=== PATIENT | male | born 1945 | race Caucasian/White ===

== ENCOUNTER 2019-02-24 18:02 | Emergency (ER) | payer MEDICARE ==
[~2019-02-24] VITALS: Ht 162.6 cm; Wt 63.0 kg
[~2019-02-24 18:02] MED LIST: ALPRAZOLAM0.25 MG PO; ALPRAZOLAM0.5 M2 PO; AMLODIPINE BESYL5 MG PO; AMLODIPINE2.5 MG OR; ASPIRIN LOW DOS81 M1 PO; ATORVASTATIN CA10 MG PO; CLONAZEP ODT0.5 MG PO; CLOTRIM/BET2 EX; COMPAZINE10 MG OR; DEPO-MEDROL40 MG/ML IJ; DICLOXACILL500 MG PO; DOXAZOSIN1 MG PO; EFFEXOR37.5 MG PO; FLOMAX0.4 M1 OR; FLUARIX QUADRIV1 INJ IM; FUROSEMIDE40 MG PO; GLUCOPHAGE500 MG PO; KLOR-CON M2020 MEQ PO; LEVAQUIN750 MG PO; LEVOTHYROXIN50 MC1 PO; LEVOTHYROXIN50 MCG PO; LEXAPRO10 MG OR; LIPITOR20 MG PO; LISINOPRIL20 M1 PO; LISINOPRIL20 MG OR; LISINOPRIL20 MG PO; LOPRESSOR 550 MG/TAB PO; LOPRESSOR50 M1 PO; LORCET10/650 OR; LORTAB 7.5 PO; LOTRISONE EX; MEDDOSEPAK PO; METFORMIN HCL500 MG PO; METFORMIN500 MG PO; NAPROSYN500 MG OR; NEXIUM40 M1 OR; NEXIUM40 M1 PO; NITRO-DUR0.4 MG/HR TD; OXYBUTYNIN5 M1 PO; OXYCODONE40 MG OR; PLAVIX75 MG PO; PRAVACHOL20 MG PO; PRAVASTATIN20 MG OR; PRAVASTATIN20 MG PO; PREDNISONE10 MG PO; PREDNISONE20 MG PO; RESTORIL15 MG PO; TRAMADOL HCL E100 M1 PO; TRAMADOL HCL50 MG OR; TRAMADOL HCL50 MG PO; VENLAFAXINE HC150 MG PO; VENLAFAXINE150 M1 PO; VENLAFAXINE37.5 M1 PO; VENLAFAXINE37.5 M2 PO; VENLAFAXINE75 M1 PO; VENLAFAXINE75 M2 PO; XANAX0.5 MG OR; ZYRTEC10 MG PO
[2019-02-24 19:03] LABS: HEMATOCRIT 38.4 % (39.0-50.0); HEMOGLOBIN 12.8 g/dl (14.0-18.0); IMMATURE GRANULOCYTES 0.5 % (0.0-5.0); MEAN CELL VOLUME 95.5 fL CALC (80.0-100.0); MEAN CORPUSCULAR HGB 31.8 pG CALC (26.0-32.0); MEAN CORPUSCULAR HGB CONC 33.3 g/L CALC (32.0-36.0); NEUT# 4.91 thou/uL (1.82-7.42); RED BLOOD COUNT 4.02 mill/uL (4.70-6.10); RED CELL DISTRI WIDTH 12.4 % (11.5-15.5)
[2019-02-24 19:18] LABS: ALBUMIN 4.2 g/dL (3.2-5.0); ALKALINE PHOSPHATASE 63 u/l (38-126); ANION GAP 14 (6-22 (CALC)); BILIRUBIN, TOTAL 0.5 mg/dL (0.0-1.4); BUN 16 mg/dL (8-23); BUN/CREATININE RATIO 20 (12-20 (CALC)); CARBON DIOXIDE 25 mmol/l (22-30); CHLORIDE 103 mmol/l (95-108); CREATININE 0.8 mg/dL (0.7-1.3); GFR > 60 ML/MIN (>=60 (CALC)); GFR FOR AFR.AMER. > 60 ML/MIN (>=60 (CALC)); POTASSIUM 4.4 mmol/l (3.5-5.1); SGOT/AST 17 u/l (19-48); SODIUM 138 mmol/l (137-146); TOTAL PROTEIN 6.8 g/dL (6.3-8.2)
[2019-02-24 19:19] LABS: ETHYL ALCOHOL 0 mg/dl (0-30)
[2019-02-24 20:37] LABS: URINE BILIRUBIN - DIPSTICK NEGATIVE (NEGATIVE); URINE BLOOD DIPSTICK NEGATIVE (NEGATIVE); URINE COLOR YELLOW; URINE GLUCOSE - DIPSTICK NEGATIVE (NEGATIVE); URINE KETONE NEGATIVE (NEGATIVE); URINE LEUK ESTERASE NEGATIVE (NEGATIVE); URINE NITRITE - DIPSTICK NEGATIVE (Negative); URINE PH 5.5 (4.5-8.0); URINE PROTEIN - DIPSTICK NEGATIVE (NEG-TRACE); URINE SPECIFIC GRAVITY 1.025; URINE UROBILINOGEN - DIPSTICK 0.2 E.U./dL (0.2)
[2019-02-24 20:48] LABS: BARBITURATES NEGATIVE (NEGATIVE); COCAINE NEGATIVE (NEGATIVE); METHADONE NEGATIVE (NEGATIVE); OXCYCODONE NEGATIVE (NEGATIVE); TETRAHYDROCANNABIONOL NEGATIVE (NEGATIVE); TRICYLIC ANTIDEPRESSANTS NEGATIVE (NEGATIVE)
[2019-02-24] MEDS ORDERED: EFFEXOR XR75 MG PO (22:48)
[2019-02-24] MEDS ORDERED: TRAZODONE50 MG PO (22:48)
[2019-02-24] MEDS ORDERED: DOXAZOSIN1 MG PO (22:48)
[2019-02-24] MEDS ORDERED: METOPROL TAR25 MG PO (22:49)
[2019-02-24] MEDS ORDERED: METFORMIN500 MG PO (22:49)
[2019-02-24] MEDS ORDERED: LEVOTHYROXIN100 MCG PO (22:49)
[2019-02-24] MEDS ORDERED: PRAVASTATIN SOD20 MG PO (22:50)
[2019-02-24] MEDS ORDERED: PLAVIX75 MG PO (22:50)
[2019-02-25 00:35] VITALS: BP 159/70
== END 2019-02-25 00:18 ==
LOC: ED
PROVIDERS: Emergency Medicine
DX: R45.851 Suicidal ideations (principal); F32.9 Major depressive disorder, single episode, unspecified
CPT/HCPCS: J2060